=== PATIENT | male | born 1990 | race Two or more races ===

== ENCOUNTER 2017-06-15 12:49 | Emergency (ER) | payer OTHER ==
--- NOTE | 2017-06-15 12:59 | EDM.PDOC ---
ED HPI GENERAL MEDICAL PROBLEM - General Chief Complaint: General Stated Complaint: FALL Time Seen by Provider: 06/15/17 12:51 Source of Information: Reports: Patient History Limitations: Reports: No Limitations - History of Present Illness INITIAL COMMENTS - FREE TEXT/NARRATIVE: HISTORY AND PHYSICAL: History of present illness: Patient is a 27 her old male with complaints of right sided facial pain after falling. He was on a ladder approximately 5 feet above ground when he lost his balance landing on his left side of his face. Has some right temporal/orbital pain and feels as if his right upper posterior molar is "cracked". He denies any loss of consciousness. Denies any fever, chills, change in vision or headache. Denies any cervical neck, back or extremity pain. Does have some right rib discomfort with palpation. Review of systems: As per history of present illness and below otherwise all systems reviewed and negative. Past medical history: As per history of present illness and as reviewed below otherwise noncontributory. Surgical history: As per history of present illness and as reviewed below otherwise noncontributory. Social history: No reported history of drug or alcohol abuse. Family history: As per history of present illness and as reviewed below otherwise noncontributory. Physical exam: General: Well-developed and well-nourished 27-year-old male. Alert and oriented. Nontoxic appearing and in no acute distress. HEENT: Abrasions noted to right temporalis and cheek bone. Mild tenderness with palpation. normocephalic, pupils equal and reactive bilaterally, negative for conjunctival pallor or scleral icterus, mucous membranes moist, throat clear, neck supple, nontender, trachea midline. No drooling or trismus noted. No meningeal signs Lungs: Clear to auscultation, breath sounds equal bilaterally, mild right anterior chest tenderness. Heart: S1S2, regular rate and rhythm without overt murmur Abdomen: Soft, nondistended, nontender. Negative for masses or hepatosplenomegaly. Negative for costovertebral tenderness. Pelvis: Stable nontender. Genitourinary: Deferred. Rectal: Deferred. C-spine/Back: No pinpoint vertebral tenderness upon palpation. No crepitus, step -offs or obvious deformities noted. Patient is ambulatory with a steady gait. No incontinence of urine or stool. Eyes any numbness or tingling to his distal extremities. Skin: Patient noted to right temporal/cheekbone. Otherwise skin is intact, warm , dry. No lesions or rashes noted. Extremities: Atraumatic, negative for cords or calf pain. Neurovascular unremarkable. Neuro: Awake, alert, oriented. Cranial nerves II through XII unremarkable. Cerebellum unremarkable. Motor and sensory unremarkable throughout. Exam nonfocal. Notes: I did offer the patient IM Toradol, he declines. He states he took aspirin prior to arrival. CT of the head and facial bones are within normal limits. No fractures or bleeding noted. C-spine x-ray is within normal limits. Facial abrasion was cleansed and bacitracin applied. Patient complaining of dull pain as he felt he fractured a tooth. This is not visible to me during my evaluation. I will give him tramadol 50 mg, dispense 15, no refill. Encouraged him to follow up with both his primary care provider and the dentist for further evaluation. Diagnostics: CT head and maxillofacial, chest x-ray with right rib detail, Xray C-spine Therapeutics: Bacitracin Impression: Head injury Abrasion Rib Contusion, right Plan: 1. Please review the head injury instructions that have been provided for you. 2. Rest and ice the painful areas. Tylenol and/or ibuprofen as needed for pain management. Tramadol has been prescribed for you for moderate to severe pain. This medication may cause drowsiness so do not take it while driving or needing to be functioning outside of the house. 3. Follow-up with a local dentist for your tooth pain. 4. Follow-up with a primary care provider in the next 2-3 days. Return to the ED as needed and as discussed. Definitive disposition and diagnosis as appropriate pending reevaluation and review of above. Onset: Today Duration: Minutes: Location: Reports: Face, Chest Head Pain Score (Numeric/FACES): 5 - Related Data Allergies Allergy/AdvReac Type Severity Reaction Status Date / Time No Known Allergies Allergy Verified 06/15/17 12:57 Home Meds: Home Meds . [No Known Home Meds] 06/15/17 [History] ED ROS GENERAL - Review of Systems Review Of Systems: ROS reveals no pertinent complaints other than HPI. ED EXAM, GENERAL - Physical Exam Exam: See Below (See dictation) Course - Vital Signs Last Recorded V/S: Last Vital Signs Temp 98.1 F 06/15/17 13:05 Pulse 89 06/15/17 13:05 Resp 18 06/15/17 13:05 BP 138/78 06/15/17 13:05 Pulse Ox 96 06/15/17 13:05 - Orders/Labs/Meds Meds: Medications Discontinued Medications Generic Name Dose Route Start Last Admin Trade Name Merle PRN Reason Stop Dose Admin Bacitracin 1 dose 06/15/17 13:04 06/15/17 13:48 Bacitracin Oint 1 Gm TOP 06/15/17 13:05 1 dose ONETIME ONE Administration Departure - Departure Time of Disposition: 14:00 Disposition: Home, Self-Care 01 Clinical Impression: Abrasion Head injury Qualifiers: Encounter type: initial encounter Qualified Code(s): S09.90XA - Unspecified injury of head, initial encounter Contusion of rib on right side Qualifiers: Encounter type: initial encounter Qualified Code(s): S20.211A - Contusion of right front wall of thorax, initial encounter - Discharge Information Instructions: Rib Contusion, Abrasion, [id number], Head Injury, Adult Referrals: PCP,None [Primary Care Provider] - Forms: ED Department Discharge Additional Instructions: The following information is given to patients seen in the emergency department who are being discharged to home. This information is to outline your options for follow-up care. We provide all patients seen in our emergency department with a follow-up referral. The need for follow-up, as well as the timing and circumstances, are variable depending upon the specifics of your emergency department visit. If you don't have a primary care physician on staff, we will provide you with a referral. We always advise you to contact your personal physician following an emergency department visit to inform them of the circumstance of the visit and for follow-up with them and/or the need for any referrals to a consulting specialist. The emergency department will also refer you to a specialist when appropriate. This referral assures that you have the opportunity for follow-up care with a specialist. All of these measure are taken in an effort to provide you with optimal care, which includes your follow-up. Under all circumstances we always encourage you to contact your private physician who remains a resource for coordinating your care. When calling for follow-up care, please make the office aware that this follow-up is from your recent emergency room visit. If for any reason you are refused follow-up, please contact the [facility] Emergency Department at and asked to speak to the emergency department charge nurse. [facility] [address] [place] [id number] 1. Please review the head injury instructions that have been provided for you. 2. Rest and ice the painful areas. Tylenol and/or ibuprofen as needed for pain management. Tramadol has been prescribed for you for moderate to severe pain. This medication may cause drowsiness so do not take it while driving or needing to be functioning outside of the house. 3. Follow-up with a local dentist for your tooth pain. 4. Follow-up with a primary care provider in the next 2-3 days. Return to the ED as needed and as discussed.
[2017-06-15] MEDS ORDERED: Bacitracin Oint 1 GM U/D Packet TOP ONE (13:04)
--- NOTE | 2017-06-15 13:47 | CT ---
EXAMINATION: Non contrast CT head and facial bones. Coronal and sagittal reformats. HISTORY: Pain FINDINGS: Head: No evidence of intra or extra axial hemorrhage, mass, midline shift, hydrocephalus or edema. No hypoattenuation changes in the major vascular territories to suggest acute infarct. No abnormal i ntracranial calcifications are detected. No evidence of substantial vascular calcifications. Parana steven sinuses and mastoid air cells are well aerated without substantial findings. Pituitary fossa briana ears unremarkable. Calvarium is intact. No evidence of skull fracture. Facial bones: The nasal bones appear intact. Mild recurred deviation of the nasal septum with a tiny spur. Orbital gee and maxillary gee appear intact. The zygomatic arch and pterygoid plates are in tact. Temporomandibular joints are symmetric. Mastoid air cells are clear. Orbits and globes are symm etric. IMPRESSION: 1. No acute intracranial findings. 2. No acute facial bone injury.
--- NOTE | 2017-06-15 13:48 | CR ---
EXAMINATION: Cervical spine HISTORY: Pain COMPARISON: None TECHNIQUE: AP and lateral views FINDINGS: The cervical spinal alignment is normal. The vertebral body heights and disc spaces appear maintained. No definite fracture or acute osseous abnormality. Prevertebral soft tissues are normal. Bone mineralization is normal. IMPRESSION: No acute osseous abnormality identified.
--- NOTE | 2017-06-15 13:53 | CR ---
EXAMINATION: PA chest and right ribs. HISTORY: Fall. FINDINGS: The trachea is midline. The cardiomediastinal silhouette is within normal limits. No pulmonary infilt rates, effusions or pneumothorax. Osseous structures appear unremarkable. No rib fracture identified. IMPRESSION: No acute cardiopulmonary process.
[2017-06-15 14:09] VITALS: BP 122/83
== END 2017-06-15 14:09 | disposition home or self-care (01) ==
LOC: MERGE 12:49 → MW.ED 12:49
DX: S20.211A Contusion of right front wall of thorax, initial encounter (principal); S09.90XA Unspecified injury of head, initial encounter; S00.81XA Abrasion of other part of head, initial encounter; W11.XXXA Fall on and from ladder, initial encounter
CPT/HCPCS: 70450; 70450-26; 70486; 70486-26; 71101-26-RT; 71101-RT; 72040; 72040-26; 99283; 99284-25

== ENCOUNTER 2020-08-05 01:10 | Emergency (ER) | payer SELFPAY ==
--- NOTE | 2020-08-05 01:40 | EDM.PDOC ---
ED HPI GENERAL MEDICAL PROBLEM - General Chief Complaint: Respiratory Problem Stated Complaint: BREATHING PROBLEM Time Seen by Provider: 08/05/20 01:17 - History of Present Illness INITIAL COMMENTS - FREE TEXT/NARRATIVE: HISTORY AND PHYSICAL: History of present illness: This is a 30-year-old gentleman with a history significant for asthma who presents ER today secondary to shortness of breath and anxiety that started earlier this evening. Patient reports that he has been having similar symptoms for the last several weeks. Patient reports that he saw his primary care physician and was given refill on his albuterol nebulizer. Patient reports that he utilizes nebulizer usually once a night. Patient reports this evening started having shortness of breath approximately 2 hours prior to arrival. Patient reports that he utilized his nebulizer with minimal relief in his symptoms. Patient reports that he took his anxiety medicine shortly thereafter. He reports his symptoms persisted so he called EMS for evaluation. Patient reports prior to arrival with EMS his symptoms seem to be improving significantly and upon arrival to the ED he reports that he is no longer short of breath and no longer feels anxious. Patient reports that he believes his anxiety is stemming from increased stress at work. Patient denies any recent fevers, shakes, chills. Patient has any nausea, vomiting, diarrhea. Patient reports occasional nonproductive cough. Patient denies any abdominal pain or chest pain. Patient has any calf tenderness or edema. Patient reports no history of DVT or PE in the past. Patient has any family history of DVT or PE in the past. Review of systems: As per history of present illness and below otherwise all systems reviewed and negative. Past medical history: As per history of present illness and as reviewed below otherwise noncontributory. Surgical history: As per history of present illness and as reviewed below otherwise noncontributory. Social history: No reported history of drug abuse. Family history: As per history of present illness and as reviewed below otherwise noncontributory. Physical exam: This patient was seen and evaluated during the 2019 SARS-CoV-2 novel coronavirus pandemic period. Community viral transmission is ongoing at time of this encounter and the emergency department is operating under pandemic response procedures. Constitutional: Patient is oriented to person, place, and time. Appears well- developed and well-nourished. No distress. HEENT: Moist mucous membranes Head: Normocephalic and atraumatic Eyes: Right eye exhibits no discharge. Left eye exhibits no discharge. No scleral icterus Neck: Normal range of motion. No tracheal deviation present. Cardiovascular: Normal rate and regular rhythm. Pulmonary: Effort normal, no respiratory distress. Abdominal: No distention Musculoskeletal: Normal range of motion Neurologic: Alert and oriented to person, place and time. Skin: [place], warm and dry. Psychiatric: Normal mood and affect. Behavior is normal. Judgment and thought content normal. Nursing note and vital signs have been reviewed Patient's ER physical exam is significant for lungs being clear without any wheezing rales or rhonchi. Patient is in no respiratory distress. Patient is speaking in full sentences without difficulty. Patient has no split S2, RV heave, no tachycardia, no tachypnea. Patient's pulse ox is 99% on room air. Diagnostics: Chest Xray: Normal cardiac silhouette No infiltrates or effusions identified. No PTX No evidence of acute bony fracture. As interpreted by ER MD: Laura CBC, CMP, troponin all within normal limits. Therapeutics: [] Assessment and plan: This is a 30-year-old gentleman with history significant for asthma who presents ER today secondary to his symptoms of asthma earlier this evening that was not relieved with his albuterol nebulizer. Patient also took a anxiety pill prior to coming in reports shortly after taking the pill he started feeling better. Patient's work-up in the ED is unremarkable for any other pathology such as cardiac source, pneumonia, PE Differential diagnosis includes but is not limited to: CHF, ACS, PE, pneumonia, pneumothorax, asthma exacerbation, COPD exacerbation, pleural effusion, pericardial effusion, pericarditis, viral URI, influenza, bronchitis, airway foreign body, anxiety state, and many others. Definitive disposition and diagnosis as appropriate pending reevaluation and review of above. - Related Data Allergies Allergy/AdvReac Type Severity Reaction Status Date / Time No Known Allergies Allergy Verified 08/05/20 01:12 Home Meds: Home Meds Albuterol Sulfate 1 dose NEB ASDIRECTED 08/05/20 [History] Past Medical History - Past Health History Medical/Surgical History: Denies Medical/Surgical History HEENT History: Reports: None Cardiovascular History: Reports: None Respiratory History: Reports: Asthma Gastrointestinal History: Reports: None Genitourinary History: Reports: None Musculoskeletal History: Reports: None Neurological History: Reports: None Psychiatric History: Reports: None Endocrine/Metabolic History: Reports: None Insulin Pump Model and Plant Chief: None Hematologic History: Reports: None Immunologic History: Reports: None Oncologic (Cancer) History: Reports: None Dermatologic History: Reports: None - Infectious Disease History Infectious Disease History: Reports: None - Past Surgical History Head Surgeries/Procedures: Reports: None Male Surgical History: Reports: None Social & Family History - Caffeine Use Caffeine Use: Reports: Coffee - Recreational Drug Use Recreational Drug Use: No ED ROS GENERAL - Review of Systems Review Of Systems: See Below ED EXAM, GENERAL - Physical Exam Exam: See Below #1 Interpretation EKG Interpretation Comments: EKG: As interpreted by ER physician: Laura: Nonspecific ST-T wave abnormalities Normal axis No evidence of ST elevation PA Normal sinus rhythm heart rate of 83 Course - Vital Signs Last Recorded V/S: Last Vital Signs Temp 97.4 F 08/05/20 01:10 Pulse 96 08/05/20 02:09 Resp 18 08/05/20 02:09 BP 127/78 08/05/20 02:09 Pulse Ox 96 08/05/20 02:09 - Orders/Labs/Meds Orders: Active Orders 24 hr Category Date Time Status EKG Documentation Completion [RC] AM Care 08/05/20 01:27 Active Chest 1V Frontal [CR] Stat Exams 08/05/20 01:27 Taken Labs: Laboratory Tests 08/05/20 08/05/20 Range/Units 01:24 01:24 WBC 7.90 (4.0-11.0) K/uL RBC 5.28 (4.50-5.90) M/uL Hgb 15.6 (13.0-17.0) g/dL Hct 45.7 (38.0-50.0) % MCV 86.6 (80.0-98.0) fL MCH 29.5 (27.0-32.0) pg MCHC 34.1 (31.0-37.0) g/dL RDW Std Deviation 42.8 (28.0-62.0) fl RDW Coeff of Dony 14 (11.0-15.0) % Plt Count 245 (150-400) K/uL MPV 12.00 (7.40-12.00) fL Neut % (Auto) 78.6 (48.0-80.0) % Lymph % (Auto) 17.5 (16.0-40.0) % [place] % (Auto) 3.4 (0.0-15.0) % Eos % (Auto) 0.4 (0.0-7.0) % Baso % (Auto) 0.1 (0.0-1.5) % Neut # (Auto) 6.2 H (1.4-5.7) K/uL Lymph # (Auto) 1.4 (0.6-2.4) K/uL [place] # (Auto) 0.3 (0.0-0.8) K/uL Eos # (Auto) 0.0 (0.0-0.7) K/uL Baso # (Auto) 0.0 (0.0-0.1) K/uL Nucleated RBC % 0.0 /100WBC Nucleated RBCs # 0 K/uL Sodium 135 L (136-148) mmol/L Potassium 3.8 (3.5-5.1) mmol/L Chloride 100 (98-107) mmol/L Carbon Dioxide 27.2 (21.0-32.0) mmol/L BUN 22 H (7.0-18.0) mg/dL Creatinine 0.9 (0.8-1.3) mg/dL Est Cr Clr Drug Dosing 115.06 mL/min Estimated GFR (MDRD) > 60.0 ml/min Glucose 112 H (74-106) mg/dL Calcium 8.0 L (8.5-10.1) mg/dL Total Bilirubin 0.4 (0.2-1.0) mg/dL AST 34 (15-37) IU/L ALT 48 (14-63) IU/L Alkaline Phosphatase 90 (46-116) U/L Troponin I < 0.050 (0.000-0.056) ng/mL Total Protein 7.9 (6.4-8.2) g/dL Albumin 4.1 (3.4-5.0) g/dL Globulin 3.8 (2.6-4.0) g/dL Albumin/Globulin Ratio 1.1 (0.9-1.6) Departure - Departure Time of Disposition: 02:14 Disposition: Home, Self-Care 01 Condition: Good Clinical Impression: Shortness of breath, Asthma - Discharge Information Instructions: Asthma, Adult, Shortness of Breath, Adult, [id number] Forms: ED Department Discharge Additional Instructions: You were seen and evaluated in the ER today secondary to shortness of breath. Your x-ray is normal. All your blood tests are within normal limits. Your EKG does not show any significant abnormalities. Please go home and get plenty rest. Please call your family doctor in the morning for reevaluation. The following information is given to patients seen in the emergency department who are being discharged to home. This information is to outline your options for follow-up care. We provide all patients seen in our emergency department with a follow-up referral. The need for follow-up, as well as the timing and circumstances, are variable depending upon the specifics of your emergency department visit. If you don't have a primary care physician on staff, we will provide you with a referral. We always advise you to contact your personal physician following an emergency department visit to inform them of the circumstance of the visit and for follow-up with them and/or the need for any referrals to a consulting specialist. The emergency department will also refer you to a specialist when appropriate. This referral assures that you have the opportunity for follow-up care with a specialist. All of these measure are taken in an effort to provide you with optimal care, which includes your follow-up. Under all circumstances we always encourage you to contact your private physician who remains a resource for coordinating your care. When calling for follow-up care, please make the office aware that this follow-up is from your recent emergency room visit. If for any reason you are refused follow-up, please contact the [facility] Emergency Department at and asked to speak to the emergency department charge nurse. [facility] [address] [place] [address] [id number] [address] [id number] Sepsis Event Note (ED) - Evaluation Sepsis Screening Result: No Definite Risk - Focused Exam Vital Signs: Vital Signs Temp Pulse Resp BP Pulse Ox 08/05/20 02:09 96 18 127/78 96 08/05/20 01:10 97.4 F 84 18 134/94 H 97 - My Orders Last 24 Hours: My Active Orders 08/05/20 01:27 EKG Documentation Completion [RC] AM Chest 1V Frontal [CR] Stat - Assessment/Plan Last 24 Hours: My Active Orders 08/05/20 01:27 EKG Documentation Completion [RC] AM Chest 1V Frontal [CR] Stat
[2020-08-05 02:04] LABS: BLOOD UREA NITROGEN,BUN 22 mg/dL (7.0-18.0); CARBON DIOXIDE,CO2 27.2 mmol/L (21.0-32.0); CHLORIDE,CL 100 mmol/L (98-107); GLUCOSE RANDOM 112 mg/dL (74-106); POTASSIUM,K 3.8 mmol/L (3.5-5.1); SODIUM,NA 135 mmol/L (136-148)
[2020-08-05 02:10] VITALS: BP 127/78; PULSE 96
--- NOTE | 2020-08-05 02:52 | CR ---
Indication: Chest pain Technique: Chest 1 view Comparison: 06/15/2017 Findings/Impression: Cardiovascular and mediastinum: Unremarkable cardiomediastinal silhouette for a portable, lordotic technique. Lungs and pleural space: Lungs are clear. No sign of infiltrate or mass. No sign of pleural effusion. No pneumothorax. Bones and soft tissues: No significant findings. Dictated by Chris Luong MD @ 08/05/2020 2:49:[address] Chris Luong @ Aug 05 2020 2:49AM
== END 2020-08-05 02:25 | disposition home or self-care (01) ==
LOC: MW.ED 01:10
DX: J45.909 Unspecified asthma, uncomplicated (principal)
CPT/HCPCS: 36415; 71045; 71045-26; 80053; 84484; 85025; 93005; 93010; 99283; 99285-25

== ENCOUNTER 2020-10-02 01:55 | Emergency (ER) | payer OTHER ==
[2020-10-02] MEDS ORDERED: Sodium Chloride 0.9% 1,000 ML IV ONE (02:00)
[2020-10-02 02:30] LABS: BLOOD UREA NITROGEN,BUN 10 mg/dL (7.0-18.0); CARBON DIOXIDE,CO2 27.6 mmol/L (21.0-32.0); CHLORIDE,CL 103 mmol/L (98-107); GLUCOSE RANDOM 107 mg/dL (74-106); LIPASE 95 U/L (73-393); SODIUM,NA 145 mmol/L (136-148)
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
[2020-10-02 04:32] VITALS: BP 108/69; PULSE 87
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
== END 2020-10-02 04:33 | disposition home or self-care (01) ==
LOC: MW.ED 01:55
DX: S22.32XA Fracture of one rib, left side, initial encounter for closed fracture (principal); F10.129 Alcohol abuse with intoxication, unspecified; J45.909 Unspecified asthma, uncomplicated; Y90.7 Blood alcohol level of 200-239 mg/100 ml; V47.5XXA Car driver injured in collision with fixed or stationary object in traffic accident, initial encounter; Y92.410 Unspecified street and highway as the place of occurrence of the external cause
CPT/HCPCS: 36415; 70450; 71260; 72125; 72170; 80053; 80307; 82550; 83690; 83735; 85025; 85610; 99284; J7030

== ENCOUNTER 2020-11-10 22:53 | Emergency (ER) | payer SELFPAY ==
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
[2020-11-11 00:59] VITALS: BP 137/81; PULSE 81
== END 2020-11-11 00:40 | disposition home or self-care (01) ==
LOC: MW.ED 22:53
DX: J98.01 Acute bronchospasm (principal); F41.9 Anxiety disorder, unspecified; Z79.899 Other long term (current) drug therapy; Z88.0 Allergy status to penicillin
CPT/HCPCS: 99283

== ENCOUNTER 2020-12-27 09:07 | Emergency (ER) | payer SELFPAY ==
[2020-12-27] MEDS ORDERED: Ketorolac 15 MG/ML SDV IM ONE (09:23)
--- NOTE | 2020-12-27 09:26 | EDM.PDOC ---
ED HPI GENERAL MEDICAL PROBLEM - General Stated Complaint: RIGHT ANKEL PAIN Time Seen by Provider: 12/27/20 09:17 - History of Present Illness INITIAL COMMENTS - FREE TEXT/NARRATIVE: CHIEF COMPLAINT(S): Right ankle pain HISTORY OF PRESENT ILLNESS: This is a 30-year-old man with a past medical history of asthma who comes to the emergency department with a chief complaint of right ankle pain. The patient states that he was climbing a ladder this morn ing approximately 30 minutes prior to arrival when he slipped and hurt his right ankle. He states that he is currently experiencing 6-7 out of 10 achy and throbbing pain in his right ankle. He states that with movement the pain worsens to 10 out of 10. He denies any numbness, tingling, or weakness. He states that he was able to ambulate. He states that he has not yet tried any pain medication but keeping his foot still does seem to relieve some of the pain. Exacerbating factors include movement. He denies any radiation of the pain. He denies any other injury. REVIEW OF SYSTEMS: Constitutional: Denies fever, chills. Eyes: Denies eye pain Ears, Nose, Mouth, & Throat: Denies earache Cardiovascular: Denies chest pain Respiratory: Denies shortness of breath Gastrointestinal: Denies Nausea, vomiting, diarrhea, hematochezia. Genitourinary: Denies hematuria Skin:Denies a rash MSK: Positive for right ankle pain. Neurological: Denies blurred vision, numbness, tingling, weakness psychiatric: Denies depression PAST MEDICAL HISTORY: As per history of present illness and as reviewed below otherwise noncontributory. SURGICAL HISTORY: As per history of present illness and as reviewed below otherwise noncontributory. SOCIAL HISTORY: As per history of present illness and as reviewed below otherwise noncontributory. FAMILY HISTORY: As per history of present illness and as reviewed below otherwise noncontributory. EXAMINATION OF ORGAN SYSTEMS/BODY AREAS: Constitutional: Blood pressure is 130/78, heart rate 83, respiratory rate 16 with an oxygen saturation of 98% on room air. Temperature 36.8 General: Well-appearing man who is in no acute distress Psychiatric: Appropriate mood and affect. Eyes: No scleral icterus or conjunctival erythema Cardiovascular: Regular, rate, and rhythm. No gallops, murmurs, or rubs. Bilateral upper extremity and lower extremity pulses symmetric and intact. No peripheral edema. No JVD. Respiratory: Lungs clear to auscultation bilaterally. No wheezes, rales, or rhonchi. Musculoskeletal: The patient can flex and extend at the right ankle. There is medial malleolar tenderness and swelling. No lateral malleolar tenderness or base of the fifth metatarsal tenderness. No obvious deformity. Skin: No lesions or abrasions. Neurological: Alert, GCS 15 distal sensation is intact MEDICAL DECISION MAKING AND COURSE IN THE ED WITH INTERPRETATION/REVIEW OF DIAGNOSTIC STUDIES: This is a 30-year-old man with a past medical history of asthma who comes to the emergency department with medial malleolar tenderness and swelling after an accidental fall. At this time we will obtain foot and ankle x-ray on the right. We will provide the patient with Toradol for pain relief. We will also place an ice pack on the patient's ankle. Differential at this time includes ligamentous versus bony injury. The patient is neurovascularly intact. The radiological images were viewed by myself along with reading the report from the radiologist. Right ankle x-ray reveals an apparent acute avulsion fracture from the medial talus and mild generalized soft tissue swelling greatest medially. Right foot x-ray does not reveal any acute fracture or dislocation. After imaging I did contact ships equipment engineer Dr. Vega given this x-ray finding. It is atypical to have an isolated avulsion fracture. He did recommend CT and follow-up with outpatient evaluation. I did discuss this with the patient he was amenable to this plan. The radiological images were viewed by myself along with reading the report from the radiologist. Right ankle CT reveals an acute minimally displaced avulsion fracture from the medial talus. There is a tiny avulsion fracture versus nontraumatic soft tissue calcification adjacent to the lateral talus. Ill-defined hemorrhage in the soft tissues over the medial ankle. After CT we did place the patient in a posterior splint and provided the patient with crutches. He is to be nonweightbearing until follow-up with podiatry. He was given symptomatic treatment at home and strict return precautions. He was amenable discharge and had no further questions. Post splint placement examination: Capillary refill of the distal right lower extremity is less than 2 seconds, sensation intact and patient able to move toes. DISPOSITION: The patient was discharged home in stable condition. The patient will follow up with podiatry in 5 to 7 days CONDITION: Fair PROCEDURES: None FINAL IMPRESSION(S)/DIAGNOSES: 1. Acute nondisplaced medial talus avulsion fracture DME: Posterior splint of the right lower extremity Indication: Nondisplaced medial talus avulsion fracture Benefit: Immobilization Duration: Until follow-up with podiatry DME: Crutches Indication: Nondisplaced medial talus avulsion fracture Benefit: Nonweightbearing Duration: Until follow-up with podiatry Sony Green M.D. Right Ankle Pain Score (Numeric/FACES): 6 - Related Data Allergies Allergy/AdvReac Type Severity Reaction Status Date / Time Penicillins Allergy throat Verified 12/27/20 09:21 thightness Home Meds: Home Meds Albuterol Sulfate 1 dose NEB ASDIRECTED 08/05/20 [History] Escitalopram Oxalate [Lexapro] 20 mg PO DAILY 12/27/20 [History] Past Medical History - Past Health History Medical/Surgical History: Denies Medical/Surgical History HEENT History: Reports: None Cardiovascular History: Reports: None Respiratory History: Reports: Asthma Gastrointestinal History: Reports: None Genitourinary History: Reports: None Musculoskeletal History: Reports: None Neurological History: Reports: None Psychiatric History: Reports: None Endocrine/Metabolic History: Reports: None Insulin Pump Model and Employee Operations Examiner: None Hematologic History: Reports: None Immunologic History: Reports: None Oncologic (Cancer) History: Reports: None Dermatologic History: Reports: None - Infectious Disease History Infectious Disease History: Reports: None - Past Surgical History Head Surgeries/Procedures: Reports: None Male Surgical History: Reports: None Social & Family History - Caffeine Use Caffeine Use: Reports: Coffee ED ROS GENERAL - Review of Systems Review Of Systems: See Below ED EXAM, GENERAL - Physical Exam Exam: See Below Course - Vital Signs Last Recorded V/S: Last Vital Signs Temp 36.8 C 12/27/20 09:17 Pulse 71 12/27/20 12:08 Resp 16 12/27/20 12:08 BP 118/82 12/27/20 12:08 Pulse Ox 99 12/27/20 12:08 - Orders/Labs/Meds Meds: Medications Discontinued Medications Generic Name Dose Route Start Last Admin Trade Name Freq PRN Reason Stop Dose Admin Ketorolac Tromethamine 15 mg 12/27/20 09:23 12/27/20 09:32 Ketorolac 15 Mg/Ml Sdv IM 12/27/20 09:24 15 mg ONETIME ONE Administration Departure - Departure Time of Disposition: 11:42 Disposition: Home, Self-Care 01 Condition: Fair Clinical Impression: Avulsion fracture of talus - Discharge Information *PRESCRIPTION DRUG MONITORING PROGRAM REVIEWED*: No *COPY OF PRESCRIPTION DRUG MONITORING REPORT IN PATIENT CHRISTOPHER: No Instructions: Cast or Splint Care, Adult, [id number], Ankle Fracture, Tarsal Fracture Referrals: Sylvia Goins PA [Primary Care Provider] - Deep Vega DPM [Physician] - Forms: ED Department Discharge Additional Instructions: You were evaluated today on an emergent basis. At this time you do have a fracture of the bone and your ankle. As discussed you need to keep this splint in place and not put any weight on your right foot. Please use the crutches. Please use the pain medication as described below and follow-up with podiatry within 5 to 7 days. Return if you have any worsening symptoms such as worsening pain, cold/white foot, cannot feel your foot. Please use: Tylenol 500-1000mg every 6 hours (DO NOT TAKE MORE THAN 4000mg in 1 day) Ibuprofen 400mg every 6 hours (Take with food as it can cause ulcers, GI upset) Example schedule: 8:00 AM (Tylenol 500-1000mg) 11:00 AM (Ibuprofen 400mg) 2:00 PM (Tylenol 500-1000mg) 5:00 PM (Ibuprofen 400mg) Ice the area 20 minutes 4 times per day Pod[address]ry Dr. Vega [phone] The patient is informed of any results of their evaluation and diagnostic workup and all questions are answered. They are given discharge instructions and return precautions. The patient is stable for discharge. The patient states they understand and agree with the plan and that they will return if their symptoms get worse or if they have any new concerns. The following information is given to patients seen in the emergency department who are being discharged to home. This information is to outline your options for follow-up care. We provide all patients seen in our emergency department with a follow-up referral. The need for follow-up, as well as the timing and circumstances, are variable depending upon the specifics of your emergency department visit. If you don't have a primary care physician on staff, we will provide you with a referral. We always advise you to contact your personal physician following an emergency department visit to inform them of the circumstance of the visit and for follow-up with them and/or the need for any referrals to a consulting specialist. The emergency department will also refer you to a specialist when appropriate. This referral assures that you have the opportunity for follow-up care with a specialist. All of these measure are taken in an effort to provide you with optimal care, which includes your follow-up. Under all circumstances we always encourage you to contact your private physician who remains a resource for coordinating your care. When calling for follow-up care, please make the office aware that this follow-up is from your recent emergency room visit. If for any reason you are refused follow-up, please contact the [facility] Emergency Department at and asked to speak to the emergency department charge nurse.
--- NOTE | 2020-12-27 10:34 | CR ---
INDICATION: Twisting injury. TECHNIQUE: Three views of the right foot. COMPARISON: Today`s right ankle x-rays. FINDINGS: No obvious soft tissue swelling, fracture or subluxation. IMPRESSION: Negative right foot. Dictated by Kemar Peck MD @ 12/27/2020 10:33:18 AM (Electronically Signed)
--- NOTE | 2020-12-27 10:36 | CR ---
INDICATION: Twisted right ankle. TECHNIQUE: Three views of the right ankle. COMPARISON: Today`s right foot x-rays. FINDINGS: Apparent avulsion fracture from the medial aspect of the talus. Mild generalized soft tissue swelling, greater medially. Ankle joint space normal. IMPRESSION: Apparent acute avulsion fracture from the medial talus and mild generalized soft tissue swelling, greatest medially. Dictated by Kemar Peck MD @ 12/27/2020 10:36:01 AM (Electronically Signed)
--- NOTE | 2020-12-27 11:25 | CT ---
HISTORY: Talus fracture. TECHNIQUE: CT right ankle without contrast. COMPARISON: Right foot and ankle radiographs same day. FINDINGS: 8 mm long thin minimally displaced avulsion fracture from the medial talus corresponding to the deltoid ligament attachment. 2 mm calcification between the lateral malleolus and talus anteriorly may be a tiny avulsion fragment versus nontraumatic soft tissue calcification. Ankle mortise is congruent. Joint spaces are maintained. No bone lesions. Muscle mass is maintained. Ill-defined hemorrhage in the soft tissues over the medial ankle. IMPRESSION: 1. Acute minimally displaced avulsion fracture from the medial talus. 2. Tiny avulsion fracture versus nontraumatic soft tissue calcification adjacent to the lateral talus. 3. Ill-defined hemorrhage in the soft tissues over the medial ankle. Please note that all CT scans at this facility use dose modulation, iterative reconstruction, and/or weight-based dosing when appropriate to reduce radiation dose to as low as reasonably achievable. Dictated by Willian Singh MD @ 12/27/2020 11:23:14 AM (Electronically Signed)
[2020-12-27 12:09] VITALS: BP 118/82; PULSE 71
== END 2020-12-27 12:38 | disposition home or self-care (01) ==
LOC: MW.ED 09:07
DX: S92.191A Other fracture of right talus, initial encounter for closed fracture (principal); Z88.0 Allergy status to penicillin; X50.1XXA Overexertion from prolonged static or awkward postures, initial encounter
CPT/HCPCS: 29515; 73610; 73630; 73700; 96372; 99284; J1885; 99283